=== PATIENT | male | born 1985 | race Caucasian/White ===

== ENCOUNTER 2022-05-20 21:06 | Emergency (ER) | payer OTHER ==
[~2022-05-20] VITALS: Ht 182.9 cm; Wt 77.1 kg
[2022-05-20 21:52] VITALS: BP 116/69
--- NOTE | 2022-05-20 22:43 | NUR ---
Patient discharged to home in stable condition. Written and verbal after care instructions given. Patient verbalizes understanding of instruction. Pt ambulatory with a steady gait
== END 2022-05-20 22:44 | disposition home or self-care (01) ==
LOC: ER 21:50
DX: R06.02 Shortness of breath (principal); F12.90 Cannabis use, unspecified, uncomplicated
CPT/HCPCS: 71045-TC

== ENCOUNTER 2023-05-14 21:41 | Emergency (ER) | payer MEDICARE, OTHER ==
[~2023-05-14] VITALS: Ht 182.9 cm; Wt 68.5 kg
[2023-05-15 00:54] VITALS: BP 93/50; TEMP 98; O2SAT 97
[2023-05-15] MEDS ORDERED: TYL2T PO (03:03)
== END 2023-05-15 06:39 | disposition home or self-care (01) ==
LOC: ER 21:41
DX: M79.605 Pain in left leg (principal); F20.9 Schizophrenia, unspecified; F17.200 Nicotine dependence, unspecified, uncomplicated
CPT/HCPCS: 73590-TC

== ENCOUNTER 2024-06-07 20:18 | Emergency (ER) | payer OTHER ==
[~2024-06-07] VITALS: Ht 182.9 cm; Wt 70.3 kg
[~2024-06-07 20:18] MED LIST: TYL2T PO
[2024-06-08 00:46] VITALS: BP 134/66; TEMP 99.3; O2SAT 98
== END 2024-06-08 00:46 | disposition home or self-care (01) ==
LOC: ER 20:28
DX: F12.10 Cannabis abuse, uncomplicated (principal); F20.9 Schizophrenia, unspecified; M54.2 Cervicalgia; F17.210 Nicotine dependence, cigarettes, uncomplicated; Z76.89 Persons encountering health services in other specified circumstances
CPT/HCPCS: 70490-TC

== ENCOUNTER 2025-05-29 19:45 | Emergency (ER) | payer OTHER, MEDICAID ==
[~2025-05-29] VITALS: Ht 182.9 cm; Wt 70.3 kg
[2025-05-29] MEDS ORDERED: IBUPROFEN 600 MG TABLET ONE (20:55)
[2025-05-29] MEDS: IBUPROFEN 600 MG TABLET PO ONE (21:08)
[2025-05-29] MEDS ORDERED: SULF1TAB48 PO (21:17)
[2025-05-29] MEDS ORDERED: IBUP-1490 PO (21:17)
[2025-05-29] MEDS ORDERED: CEPH-570 PO (21:17)
[2025-05-29] MEDS ORDERED: SULFAMETH/TRIMETH 800/160 MG 1 UDTAB TABLET ONE (21:39)
[2025-05-29] MEDS ORDERED: CEPHALEXIN MONOHYDRATE 500 MG CAPSULE PO ONE (21:39)
[2025-05-29] MEDS: SULFAMETH/TRIMETH 800/160 MG 1 UDTAB TABLET PO ONE (21:42)
[2025-05-29] MEDS: CEPHALEXIN MONOHYDRATE 500 MG CAPSULE PO ONE (21:43)
[2025-05-29 22:18] VITALS: BP 128/76; TEMP 99; O2SAT 99
== END 2025-05-29 22:19 | disposition home or self-care (01) ==
LOC: ER 19:47
DX: L03.116 Cellulitis of left lower limb (principal); F20.9 Schizophrenia, unspecified; F17.200 Nicotine dependence, unspecified, uncomplicated; Z79.899 Other long term (current) drug therapy; W20.8XXA Other cause of strike by thrown, projected or falling object, initial encounter; Y93.89 Activity, other specified; Y92.89 Other specified places as the place of occurrence of the external cause; Y99.9 Unspecified external cause status
CPT/HCPCS: 73590-TC; 73630-TC